=== PATIENT | female | born 1995 | race American Indian/Alaskan Native ===

== ENCOUNTER 2016-08-14 16:44 | Emergency (ER) | payer SELFPAY ==
[2016-08-14 16:53] VITALS: BP 119/76
[2016-08-14 17:28] LABS: Bilirubin,Urine NEG (Negative); Blood,Urine NEG (Negative); Ketones,Urine 80 mg/dL (Negative); Leukocyte Esterase,Urine LG (Negative); Mucus,Urine 3+ /HPF; Nitrite,Urine NEG (Negative); Urobilinogen,Urine < 2.0 mg/dL (<2.0)
[2016-08-14 17:31] LABS: WBC,Urine > 182.0 /HPF (0.0-6.0)
--- NOTE | 2016-08-14 19:22 | Ultrasound Report ---
FINAL REPORT EXAM: US OB TRANSVAGINAL HISTORY: 6 weeks with abd. cramping TECHNIQUE: Real-time sonography was performed of the gravid uterus endovaginally and images are submitted for interpretation. PRIORS: None. FINDINGS: The uterus appears normal and has a grossly normal appearing gestational sac. There is a normal appearing pole measuring 0.2 centimeters for an estimated gestational age of 5 weeks 5 days. A normal-appearing yolk sac is identified. The heart is beating at a rate of 100 beats per minute. There is a 2.2 cm right ovarian cyst with low-level linear internal echoes. The right ovary measures 3.7 x 3.3 x 3.3 cm. The left ovary appears normal measuring 2.1 x 2.0 x 1 point IMPRESSION: Single live intrauterine gestation, estimated gestational age 5 weeks 5 days for an estimated date of confinement of 04/11/2009. 2.2 cm hemorrhagic cyst in the right ovary.
--- NOTE | 2016-08-14 19:28 | Ultrasound Report ---
FINAL REPORT EXAM: US OB \T\lt; = 14 WEEKS FETUS HISTORY: abd. cramping with 6 weeks TECHNIQUE: Real-time sonography was performed of the gravid uterus transabdominally and images are submitted for interpretation. PRIORS: None. FINDINGS: The uterus appears normal and has a grossly normal appearing gestational sac. There is a normal appearing pole measuring 0.2 centimeters for an estimated gestational age of 5 weeks 5 days. A normal-appearing yolk sac is identified. The heart is beating at a rate of 100 beats per minute. There is a 2.2 cm right ovarian cyst with low-level linear internal echoes. The right ovary measures 3.7 x 3.3 x 3.3 cm. The left ovary appears normal measuring 2.1 x 2.0 x 1.9 cm. IMPRESSION: Single live intrauterine gestation, estimated gestational age 5 weeks 5 days for an estimated date of confinement of 04/11/2017 2.2 cm hemorrhagic cyst in the right ovary.
--- NOTE | 2016-08-15 11:15 | ED Elopement Review ---
ED Pt Elopement review - Results review Lab results: Laboratory Tests 08/14/16 08/14/16 17:11 17:12 HCG, Quant 20298 H Urine Color Yellow Urine Turbidity Cloudy Urine pH 5.0 Ur Specific [place] 1.025 Urine Protein 30 mg/dl Urine Glucose (UA) Neg Urine Ketones 80 Urine Blood Neg Urine Nitrite Neg Urine Bilirubin Neg Urine Urobilinogen < 2.0 Ur Leukocyte Esterase Lg Urine WBC (Auto) > 182.0 H Urine RBC (Auto) 12.0 U Epithel Cells (Auto) 29.0 H Urine Mucus 3+ - Call Back decision Pt Call Back Decision: Call pt to return to ED [facility]
== END 2016-08-14 20:00 | disposition left against medical advice (07) ==
LOC: ED 16:44
DX: O26.891 Other specified pregnancy related conditions, first trimester (principal); R10.9 Unspecified abdominal pain; Z53.21 Procedure and treatment not carried out due to patient leaving prior to being seen by health care provider; Z3A.01 Less than 8 weeks gestation of pregnancy
CPT/HCPCS: 36415; 76801; 76817; 81001; 84702